=== PATIENT | female | born 1950 | race Caucasian/White ===

== ENCOUNTER → 2017-07-10 | Outpatient (CLI) | payer OTHER, MEDICARE ==
--- NOTE | 2017-07-13 08:08 | MM ---
Reason for exam: screening (asymptomatic). Last mammogram was performed 2 years and 3 months ago. History: Patient is postmenopausal. Took progesterone for 3 months. Physical Findings: A clinical breast exam by your physician is recommended on an annual basis and results should be correlated with mammographic findings. MG 3D Screening Mammo W/Cad Bilateral CC and MLO view(s) were taken. Prior study comparison: March 30, 2015, bilateral MG screening mammo w CAD. The breast tissue is heterogeneously dense. This may lower the sensitivity of mammography. Finding: There are typically benign round calcifications in both breasts. There is no discrete abnormality. ASSESSMENT: Benign, BI-RAD 2 RECOMMENDATION: Routine screening mammogram of both breasts in 1 year.
== END | disposition home or self-care (01) ==
LOC: RADMAMWWP 10:16
PROVIDERS: ATTEND Family Medicine
DX: Z12.31 Encounter for screening mammogram for malignant neoplasm of breast (principal)
CPT/HCPCS: 77063; 77067

== ENCOUNTER 2018-08-24 06:12 | Day surgery (SDC) | payer OTHER, MEDICARE ==
[2018-08-24] MEDS ORDERED: LIDOCAINE 1% 20 ML VIAL (10MG/ML) FOR IV START INTRADERMA ONE (07:43)
[2018-08-24] MEDS ORDERED: LACTATED RINGERS 1,000 ML IV ONE (07:43)
[2018-08-24 07:47] VITALS: RESP 16; TEMP 98
[2018-08-24] MEDS ORDERED: LIDOCAINE 1% 20 ML VIAL (10MG/ML) FOR IV START INTRADERMA PRN (07:50)
[2018-08-24] MEDS ORDERED: LACTATED RINGERS 1,000 ML IV SCH (07:50)
[2018-08-24] MEDS ORDERED: PROPOFOL 10 MG/ML 20 ML VIAL IV ONE (09:33)
[2018-08-24] MEDS ORDERED: GLYCOPYRROLATE 0.2 MG/ML 2 ML VIAL ONE (09:33)
[2018-08-24] MEDS ORDERED: LIDOCAINE 1% INJ 10MG/ML (20 ML MDV) ONE (09:33)
--- NOTE | 2018-08-24 10:05 | P.PCN ---
Date of Procedure: 08/24/18 Procedure(s) Performed: Procedure: Esophagogastroduodenoscopy and biopsy and esophageal dilation using the Microvasive eywkqkp-obl-fjbvj balloon dilator size 12-15 mm. Preoperative diagnosis: Chronic reflux symptoms and dysphagia. Postoperative diagnosis: 1. Moderately sized hiatal hernia with esophageal stricture in distal esophagitis. 2. Gastritis and duodenitis. 3. Biopsies obtained from the duodenum and antrum. 4. Dilation accomplished using the Microvasive luuvanj-ypf-snoaz balloon dilator 12-15 mm. Preparation and sedation: Was provided by anesthesia. Brief clinical history: The patient is a 67-year-old female who I have evaluated in the office last month regarding difficulties swallowing especially meat that has been happening regularly. She has history of acid reflux over the last 2 years and long-standing history of bronchial asthma. This evaluation is to assess for complicated reflux disease or other pathology. Procedure: With the patient on her left lateral decubitus position and after informed consent and adequate sedation, I passed the Olympus GIF-H190 video upper endoscope through the cricopharyngeus down the esophagus. The distal esophagus showed a stricture allowing the advancement of the endoscope. There was dilation and pseudo-diverticulation proximal to the stricture and broad erosions and superficial ulcerations consistent with reflux esophagitis. No definite masses or Sharp's esophagus. GE junction was around 32 cm from the incisors. The endoscope was then advanced through a moderately sized hiatal hernia to the rest of the stomach which was insufflated with air and inspected in detail including the retroflex view in the cardia. There was some mottling and erythema in the antrum but no ulcers or erosions. Pyloric channel did not show any ulcers. Duodenal bulb, post bulbar area and descending duodenum showed some mottling and erythema but no ulcers or bleeding. I obtained biopsies from the duodenum and antrum then I proceeded to dilate the esophageal stricture. I passed the Microvasive rqpyqyf-gyi-locad balloon dilator size 12-15 mm through the operating channel of the endoscope and centered it at the level of the stricture. At 12 mm inflation the balloon was still passing freely across the stricture. A 13.5 then at 15 mm it appeared that there was adequate dilation. The patient tolerated the procedure well. Plan: The patient was reassured. Would keep on clear liquids today and I will maximize acid suppressive therapy and antireflux diet and measures. She will follow-up with you as planned and I will see her in follow-up and make further plans based on her course. I will keep you updated on her progress.
[2018-08-24 10:34] VITALS: BP 134/81; PULSE 87
== END 2018-08-24 10:44 | disposition home or self-care (01) ==
LOC: ORWHC2ENDO 06:12
DX: K22.2 Esophageal obstruction (principal); K21.0 Gastro-esophageal reflux disease with esophagitis; K22.10 Ulcer of esophagus without bleeding; K29.50 Unspecified chronic gastritis without bleeding; K44.9 Diaphragmatic hernia without obstruction or gangrene; K29.80 Duodenitis without bleeding; I10 Essential (primary) hypertension; J45.909 Unspecified asthma, uncomplicated; Z79.899 Other long term (current) drug therapy; Z88.5 Allergy status to narcotic agent; Z88.0 Allergy status to penicillin; Z98.51 Tubal ligation status
CPT/HCPCS: 43249; 43239; 88305; J2001; J2704; C1726

== ENCOUNTER → 2018-08-26 | Outpatient (CLI) | payer OTHER, MEDICARE ==
--- NOTE | 2018-08-31 08:56 | MM ---
Reason for exam: screening (asymptomatic). Last mammogram was performed 1 year and 2 months ago. History: Patient is postmenopausal. Took progesterone for 3 months. Physical Findings: A clinical breast exam by your physician is recommended on an annual basis and results should be correlated with mammographic findings. MG 3D Screening Mammo W/Cad Bilateral CC and MLO view(s) were taken. Prior study comparison: July 10, 2017, bilateral MG 3d screening mammo w/cad. March 30, 2015, bilateral MG screening mammo w CAD. The breast tissue is heterogeneously dense. This may lower the sensitivity of mammography. No significant changes when compared with prior studies. ASSESSMENT: Benign, BI-RAD 2 RECOMMENDATION: Routine screening mammogram of both breasts in 1 year.
== END | disposition home or self-care (01) ==
LOC: RADMAMWWP 10:13
PROVIDERS: ATTEND Family Medicine
DX: Z12.31 Encounter for screening mammogram for malignant neoplasm of breast (principal)
CPT/HCPCS: 77063; 77067

== ENCOUNTER → 2019-11-01 | Outpatient (CLI) | payer OTHER, MEDICARE ==
--- NOTE | 2019-11-01 12:01 | BD ---
EXAMINATION TYPE: Axial Bone Density DATE OF EXAM: 11/01/2019 COMPARISON: NONE CLINICAL HISTORY: Height: 59.5 IN Weight: 174 LBS RISK FACTORS HISTORY OF: Active: YES Diet low in dairy products/other sources of calcium: YES Postmenopausal woman: AGE 49 Take estrogen and/or progesterone medications: NOT NOW How long: TOOK HORMONES FOR 2 MONTHS AT AGE 49 Lost more than 2 inches in height since high school: YES 2 1/2 IN MEDICATIONS: Additional Medications: CALCIUM, VIT D, ASTHMA MEDS, MULTI VIT, VIT C, VIT B COMPLEX, BLOOD PRESSURE MEDS, SINGULAIR EXAM MEASUREMENTS: Bone mineral densitometry was performed using the [employer] System. Bone mineral density as measured about the Lumbar spine is: ----- L1-L4(G/cm2): 1.302 T Score Values are as follows: ----- L2: 0.6 ----- L3: 0.8 ----- L4: 1.5 ----- L1-L4: 1.0 Bone mineral density BASELINE Bone mineral density about the R hip (g/cm2): 0.801 Bone mineral density about the L hip (g/cm2): 0.819 T Score values are as follows: -----R Neck: -1.7 -----L Neck: -1.6 -----R Total: -0.6 -----L Total: -0.7 Bone mineral density BASELINE IMPRESSION: No evidence for osteoporosis or osteopenia. NOTE: T-SCORE=SD OF THE YOUNG ADULT MEAN.
--- NOTE | 2019-11-02 09:08 | MM ---
Reason for exam: screening (asymptomatic). Last mammogram was performed 1 year and 2 months ago. History: Patient is postmenopausal. Took progesterone for 3 months. Physical Findings: A clinical breast exam by your physician is recommended on an annual basis and results should be correlated with mammographic findings. MG 3D Screening Mammo W/Cad Bilateral CC and MLO view(s) were taken. Prior study comparison: August 26, 2018, bilateral MG 3d screening mammo w/cad. July 10, 2017, bilateral MG 3d screening mammo w/cad. The breast tissue is heterogeneously dense. This may lower the sensitivity of mammography. Stable benign calcifications. There is no discrete abnormality. No significant changes when compared with prior studies. ASSESSMENT: Benign, BI-RAD 2 RECOMMENDATION: Routine screening mammogram of both breasts in 1 year.
== END | disposition home or self-care (01) ==
LOC: RADMAMWWP 08:17
PROVIDERS: ATTEND Family Medicine
DX: Z12.31 Encounter for screening mammogram for malignant neoplasm of breast (principal); Z13.820 Encounter for screening for osteoporosis
CPT/HCPCS: 77063; 77067; 77080

== ENCOUNTER → 2020-11-01 | Outpatient (CLI) | payer OTHER, MEDICARE ==
--- NOTE | 2020-11-05 11:55 | MM ---
Reason for exam: screening (asymptomatic). Last mammogram was performed 1 year ago. History: Patient is postmenopausal. Benign excisional biopsy of the right breast, 1999. Took progesterone for 3 months. Physical Findings: A clinical breast exam by your physician is recommended on an annual basis and results should be correlated with mammographic findings. MG 3D Screening Mammo W/Cad Bilateral CC and MLO view(s) were taken. Prior study comparison: November 01, 2019, bilateral MG 3d screening mammo w/cad. August 26, 2018, bilateral MG 3d screening mammo w/cad. July 10, 2017, bilateral MG 3d screening mammo w/cad. There are scattered fibroglandular densities. Superior left MLO asymmetric density while more defined on the CC view, does not persist on 3D images. No significant changes when compared with prior studies. ASSESSMENT: Negative, BI-RAD 1 RECOMMENDATION: Routine screening mammogram of both breasts in 1 year.
== END | disposition home or self-care (01) ==
LOC: RADMAMWWP 07:52
PROVIDERS: ATTEND Family Medicine
DX: Z12.31 Encounter for screening mammogram for malignant neoplasm of breast (principal); Z78.0 Asymptomatic menopausal state
CPT/HCPCS: 77063; 77067

== ENCOUNTER → 2021-09-27 | Outpatient (CLI) | payer MEDICARE, OTHER ==
--- NOTE | 2021-09-27 09:22 | US ---
EXAMINATION TYPE: US duplex aorta DATE OF EXAM: 09/27/2021 COMPARISON: NONE CLINICAL HISTORY: Z82.49 FAMILY HX OF ISCHEM HEART DIS. Family hx of AAA (dad). EXAM MEASUREMENTS: Abdominal Aorta: Proximal: 2.0 x 1.9 cm Mid: 1.7 x 1.8 cm Distal: 1.5 x 1.6 cm Bifurcation: 1.0 x 1.0 Rt iliac 1.1 x 1.2 cm Lt iliac IMPRESSION: No AAA seen.
== END | disposition home or self-care (01) ==
LOC: RADUSWWP 08:55
PROVIDERS: ATTEND Family Medicine
DX: Z82.49 Family history of ischemic heart disease and other diseases of the circulatory system (principal)
CPT/HCPCS: 93979

== ENCOUNTER → 2023-02-04 | Outpatient (CLI) | payer MEDICARE, OTHER ==
--- NOTE | 2023-02-05 08:08 | MM ---
Reason for Exam: Screening (asymptomatic). Last mammogram was performed 2 year(s) and 3 month(s) ago. Patient History: Menarche at age 14. First Full-Term at age 18. Postmenopausal. Patient has history of breast feeding. Progesterone for 3 months. 2000, Benign Excisional Biopsy on the right side. Risk Values: Earnestine 5 year model risk: 1.4%. NCI Lifetime model risk: 3.4%. Prior Study Comparison: 03/30/2015 Bilateral Screening Mammogram, [facility]. 07/10/2017 Bilateral Screening Mammogram, [facility]. 08/26/2018 Bilateral Screening Mammogram, [facility]. 11/01/2019 Bilateral Screening Mammogram, [facility]. 11/01/2020 Bilateral Screening Mammogram, [facility]. Tissue Density: The breast tissue is heterogeneously dense. This may lower the sensitivity of mammography. Findings: Analyzed By CAD. There is no suspicious group of microcalcifications or new suspicious mass in either breast. Distortion right breast from prior excisional biopsy. Overall Assessment: Benign, BI-RAD 2 Management: Screening Mammogram of both breasts in 1 year. . Patient should continue monthly self-breast exams. A clinical breast exam by your physician is recommended on an annual basis. This exam should not preclude additional follow-up of suspicious palpable abnormalities. Note on Earnestine scores and lifetime risk: 1. A Earnestine score greater than 3% is considered moderate risk. If this is the case, consider specialist referral to assess eligibility for a risk reducing agent. 2. If overall lifetime risk for the development of breast cancer is 20% or higher, the patient may qualify for future screening with alternating mammogram and breast MRI. Electronically signed and approved by: David Pulido M.D. Radiologis
== END | disposition home or self-care (01) ==
LOC: RADMAMWWP 11:11
PROVIDERS: ATTEND Family Medicine
DX: Z12.31 Encounter for screening mammogram for malignant neoplasm of breast (principal); Z78.0 Asymptomatic menopausal state
CPT/HCPCS: 77063; 77067

== ENCOUNTER → 2024-02-12 | Outpatient (CLI) | payer MEDICARE, OTHER ==
--- NOTE | 2024-02-12 15:58 | BD ---
EXAMINATION TYPE: Axial Bone Density DATE OF EXAM: 02/12/2024 CLINICAL HISTORY: 73 years old Female. ICD-10 CODE: M81.0 OSTEOPOROSIS , Additional History: Height: 59.75 Weight: 175.1 FRAX RISK QUESTIONS: Alcohol (3 or more units per day): no Family History (Parent hip fracture): no Glucocorticoids (More than 3mos): no (Ex: prednisone, prednisolone, methylprednisolone, dexamethasone, and hydrocortisone). History of Fracture in Adulthood: no Secondary Osteoporosis: 1. Type 1 Diabetes: no 2. Hyperthyroidism: no 3. Menopause before 45: no 4. Malnutrition: no 5. Chronic liver disease: no Rheumatoid Arthritis: no Current Tobacco Use: no RISK FACTORS HISTORY OF: Hip Fracture (Right/Left): no Spine Fracture: no History of Wrist Fracture: no Surgery to Spine/Hip(right/left)/Wrist (right/left): no MEDICATIONS: Thyroid Medications: no Osteoporosis Medications: no EXAM MEASUREMENTS: Bone mineral densitometry was performed using the [employer] System. Bone mineral density as measured about the Lumbar spine is: ----- L1-L4(G/cm2): 1.339 T Score Values are as follows: ----- L1: 1.1 ----- L2: 0.1 ----- L3: 1.8 ----- L4: 1.8 ----- L1-L4: 1.3 Z Score Values are as follows: ----- L1: 2.3 ----- L2: 1.4 ----- L3: 3.0 ----- L4: 3.1 ----- L1-L4: 2.6 Bone mineral density has: increased 2.8 % since study of: 11/01/2019 Bone mineral density about the R hip (g/cm2): 0.887 Bone mineral density about the L hip (g/cm2): 0.877 T Score values are as follows: -----R Neck: -2.0 -----L Neck: -1.7 -----R Total: -1.0 -----L Total: -1.0 Z Score values are as follows: -----R Neck: -0.4 -----L Neck: -0.1 -----R Total: 0.4 -----L Total: 0.3 Bone mineral density has: decreased -4.6 % since study of: 11/01/2019 FRAX%s: The graph provided illustrates a 12.0 % chance for a major osteoporotic fx and a 2.9% chance for the hips probability for fx in 10 years time. IMPRESSION: Osteopenia (T Score between -2.5 and -1). There is slightly increased risk of fracture and the patient may be considered for treatment. Re-Screen 2-5 years. NOTE: T-SCORE=SD OF THE YOUNG ADULT MEAN. [facility], , 02/12/2024 3:56 PM
--- NOTE | 2024-02-15 11:23 | MM ---
Reason for Exam: Screening (asymptomatic). Last mammogram was performed 1 year(s) and 1 month(s) ago. Patient History: Menarche at age 14. First Full-Term at age 18. Postmenopausal. Patient has history of breast feeding. Progesterone for 3 months. 1999, Benign Excisional Biopsy on the right side. Risk Values: Earnestine 5 year model risk: 1.4%. NCI Lifetime model risk: 3.2%. Prior Study Comparison: 11/01/2019 Bilateral Screening Mammogram, [facility]. 11/01/2020 Bilateral Screening Mammogram, [facility]. 02/04/2023 Bilateral MG 3D screening mammo w/cad, [facility]. Tissue Density: There are scattered areas of fibroglandular density. Findings: Analyzed By CAD. Right breast: There is no suspicious group of microcalcifications or new suspicious mass. Benign-appearing calcifications right breast. Left breast: There is no suspicious group of microcalcifications or new suspicious mass. Benign-appearing calcifications left breast. Overall Assessment: Benign, BI-RAD 2 Management: Screening Mammogram of both breasts in [address] [facility] will attempt to contact patient to return for supplemental views and ultrasound if indicated. Patient should continue monthly self-breast exams. A clinical breast exam by your physician is recommended on an annual basis. This exam should not preclude additional follow-up of suspicious palpable abnormalities. Note on Earnestine scores and lifetime risk: 1. A Earnestine score greater than 3% is considered moderate risk. If this is the case, consider specialist referral to assess eligibility for a risk reducing agent. 2. If overall lifetime risk for the development of breast cancer is 20% or higher, the patient may qualify for future screening with alternating mammogram and breast MRI. [facility], , 02/15/2024 11:21 AM. Electronically signed and approved by: Tahir Reagan DO
== END | disposition home or self-care (01) ==
LOC: RADBDWWP 14:57
PROVIDERS: ATTEND Family Medicine
DX: Z12.31 Encounter for screening mammogram for malignant neoplasm of breast (principal); M81.0 Age-related osteoporosis without current pathological fracture; M81.8 Other osteoporosis without current pathological fracture; Z78.0 Asymptomatic menopausal state; M85.80 Other specified disorders of bone density and structure, unspecified site
CPT/HCPCS: 77063; 77067; 77080